=== PATIENT | male | born 1950 | race Caucasian/White ===

== ENCOUNTER → 2019-06-21 12:31 | Outpatient (CLI) | payer MEDICARE, OTHER, SELFPAY ==
--- NOTE | 2019-06-21 12:35 | DI.MRI.S_ITS ---
PROCEDURE: MR LUMBAR SPINE WO CON INDICATIONS: Lower back pain TECHNIQUE: Noncontrast sagittal T1 spin echo and T2 fast echo, sagittal STIR, axial T1 and T2 fast spin echo through the lumbar spine. In cases with scoliosis, additional coronal T2 fast spin echo may be performed. COMPARISON: None. FINDINGS: Image quality: Suboptimal secondary to sacral fixation hardware. Alignment and Curvature: Straightening of the normal lordotic curvature. Bone Marrow: Multilevel degenerative endplate sclerosis and spurring. Diffuse facet arthropathy. No acute vertebral body compression fractures. Spinal Cord: Conus medullaris terminates at the L1 level. Visualized cord demonstrates normal signal and size. Paraspinous Soft Tissues: No paravertebral masses. There is nonspecific, dependent posterior subcutaneous soft tissue edema from level of L2-L5. L1-L2: Normal appearance. L2-L3: No high-grade central canal narrowing. Lateral recesses appear patent. No left foraminal stenosis. Mild right foraminal narrowing. L3-L4: Posterior annular fissure. Left paracentral disc protrusion. Mild left-sided canal narrowing. Mild partial effacement of the left lateral recess. Mild left foraminal narrowing mild right foraminal stenosis L4-L5: Posterior annular fissure. Mild central canal narrowing. Partial effacement of both lateral recesses with bilaterally symmetric appearance. Severe left foraminal stenosis with nerve root compression. Moderate to severe right foraminal narrowing with possible nerve root compression L5-S1: No central canal narrowing. No lateral recess narrowing. No foraminal narrowing IMPRESSION: Multilevel lumbar spondylosis, with severe left L4-L5 foraminal narrowing. Moderate to severe right L4-L5 foraminal stenosis. Left paracentral disc protrusion at L3-L4 with partial effacement of the left lateral recess and minimal left-sided canal narrowing. Dictated by: Maxime Elkins M.D. on 06/22/2019 at 11:20 Approved by: Maxime Elkins M.D. on 06/22/2019 at 11:31
== END ==
PROVIDERS: Family Provider Family Medicine; PCP Family Medicine; Visit Provider Physical Medicine & Rehabilitation
DX: M54.5 Low back pain (principal); M47.27 Other spondylosis with radiculopathy, lumbosacral region; M47.26 Other spondylosis with radiculopathy, lumbar region; M48.061 Spinal stenosis, lumbar region without neurogenic claudication; M48.07 Spinal stenosis, lumbosacral region; M51.16 Intervertebral disc disorders with radiculopathy, lumbar region
CPT/HCPCS: 72148

== ENCOUNTER 2019-07-17 12:15 | Outpatient (CLI) | payer MEDICARE, OTHER, SELFPAY ==
--- NOTE | 2019-07-17 12:16 | DI.RAD.S_ITS ---
PROCEDURE: PAIN L/S FACET INJ/BLK 1ST ASHLYN COMPARISON: None. INDICATIONS: 10986, [id number]- Bilateral L4/5, L5/S1 Facet Joint Injection FINDINGS: Bilateral L3-4 and L4-5 needle tip localization for facet joint injection of steroid. This represents 4 separate interventional procedures. IMPRESSION: Successful needle tip localization for bilateral L4-5 and L5-S1 facet joint steroid injections. Dictated by: Alexis Mills M.D. on 07/17/2019 at 15:48 Approved by: Alexis Mills M.D. on 07/17/2019 at 15:49
[2019-07-17 12:30] VITALS: BP 120/67; PULSE 84; RESP 16; TEMP 36; O2SAT 96
[2019-07-17 13:45] VITALS: BP 139/87; PULSE 77; RESP 16; O2SAT 96
[2019-07-17] MEDS: MIDAZOLAM 5 MG/5 ML VIAL IV (13:46)
[2019-07-17] MEDS: fentaNYL 100 MCG/2 ML INJ 50 MCG IV (13:46)
[2019-07-17 13:50] VITALS: BP 112/74; PULSE 74; RESP 16; O2SAT 95
[2019-07-17] MEDS: LIDOCAINE 1% 20 ML 10 ML INJ (13:51)
[2019-07-17] MEDS: IOPAMIDOL 15 ML VIAL 3 ML INJ (13:51)
[2019-07-17] MEDS: BUPIVACAINE 0.5% (PF) VIAL 2 ML INJ (13:51)
[2019-07-17] MEDS: BETAMETHASONE 30 MG/5 ML MDV 12 MG INJ (13:51)
[2019-07-17 13:55] VITALS: BP 114/72; PULSE 73; RESP 16; O2SAT 95
--- NOTE | 2019-07-17 13:57 | PC.NURSE ---
ASSISTING PT OFF TABLE AND TRANSPORTING TO POST PROC AREA IN STABLE CONDITION. PASSING RN CARE OF PT OFF TO ARNEL Montesinos RN. PREPPED AND ADMINISTERED VERSED AND FENTANYL, ALL OTHER MEDS PREPPED AND ADMINISTERED BY DR. TOLENTINO.
--- NOTE | 2019-07-17 14:02 | P.PCN_ITS ---
Procedures Date/Time Date of procedure: 07/17/19 Time of procedure: 14:02 General Procedure description: PREOP DIAGNOSIS 1. FACET ARTHROPATHY 2. AXIAL LBP 3. MULTILEVEL DDD POST OP DIAGNOSIS 1. FACET ARTHROPATHY 2. AXIAL LBP 3. MULTILEVEL DDD PROCEDURES 1. FLUORSCOPICALLY GUIDED CONTRAST CONTROLLED FACET JOINT INJECTIONS BILATERAL L3/4, L4/5 PHYSICIAN: Shaheed Quijano DO INDICATIONS: Javon is referred by Dr. Mar for treatment of Axial LBP FINDINGS Multilevel Facet Arthropathy with Clinically significant axial LBP DESCRIPTION OF PROCEDURE Fluoroscopically guided, contrast-controlled bilateral L3/4, L4/5 facet joint injections. Following review of allergy and review of potential side effects and complications, including, but not necessarily limited to, infection, allergic reaction, local tissue breakdown, stroke, temporary or permanent nerve injury, paralysis, and possible , the patient indicated that the patient understood and agreed to proceed. An informed consent document was signed by the patient, witnessed by a nurse, and placed in the patient's chart. Additionally, other treatment options including medications, modalities, and physical therapy were reviewed with the patient. After review of previous anaesthesic history and IV conscious sedation the patient was deemed safe to proceed with todays procedure with IV conscious sedation as ASA class II designation. Safety time-out was performed to confirm patient ID, procedure to be performed and site of procedure. IV sedation was accomplished with a combination of 2mg of Versed and 50mcg of Fentanyl was administered by the RN after DO order, titrated to patient comfort during the course of the procedure while the patient remained responsive to all verbal commands. In the prone position, following sterile prep and drape of the lumbar region, the posterior aspect of the L3/4, L4/5 facet joints were identified fluoroscopically. The skin was anesthetized via a 25-gauge 1.5-inch needle with 1% lidocaine solution into the corresponding facet joints. At this point, a 22- gauge 3.5-inch spinal needle was atraumatically introduced and advanced under fluoroscopic guidance into the corresponding facet joints. Following negative aspiration, injections of approximately 0.2-cc of Isovue 200 confirmed interarticular placement without vascular uptake. The identical procedure was then performed at the L3/4, L4/5 facet joints on the left. Radiological data, including multiple fluoroscopic views of the lumbosacral spine, reveal a spinal needle at the L3/4, L4/5 facet joints bilaterally. Subsequent views show flow of contrast material both superiorly and inferiorly within the joint space without vascular or intrathecal uptake. At this point, a total of 0.5 cc including a mixture of 0.25 cc Marcaine and 0.25 cc betamethasone was injected without complication into each of the corresponding facet joints. The patient tolerated the procedure well without signs or symptoms of complications prior to transfer to the recovery area continued monitoring without incident. The patient was then transferred to the recovery area where they were observed for an appropriate period of time after the injection. The patient reported a VAS score of 7 prior to the procedure and a post-procedure VAS of 0. Total Fluoroscopy Time: 20.3 seconds Total Conscious Sedation Time: 24min POST OP INSTRUCTIONS The patient was provided a Pain Log to continue to record their response to the target-specific procedure prior to follow-up visit with their referring physician. Additionally, specific post-injection care instructions and a contact number to our office were provided if concerns arise regarding possible complications associated with the procedure are suspected. Shaheed Quijano DO Complications: none
[2019-07-17 14:30] VITALS: BP 135/78; PULSE 82; RESP 16; O2SAT 94
--- NOTE | 2019-07-17 14:37 | PC.NURSE ---
ID note: 1400 Received patient awake, alert, and pleasant in stable condition.
== END 2019-07-17 14:20 | disposition home or self-care (01) ==
LOC: RAD 12:16
PROVIDERS: Family Provider Family Medicine; PCP Family Medicine; Visit Provider Physical Medicine & Rehabilitation
DX: M47.816 Spondylosis without myelopathy or radiculopathy, lumbar region (principal); M54.5 Low back pain; M51.36 Other intervertebral disc degeneration, lumbar region
CPT/HCPCS: 64493; 64494; 99152; J0702; J2250; J3010

== ENCOUNTER → 2019-12-28 13:04 | Outpatient (CLI) | payer MEDICARE, OTHER, SELFPAY ==
--- NOTE | 2019-12-28 13:07 | DI.RAD.S_ITS ---
PROCEDURE: XR KNEE LT 3V INDICATIONS: knee pain TECHNIQUE: 3 views of the knee were acquired. COMPARISON: None. FINDINGS: Bones: No fractures or dislocations. No suspicious bony lesions. There is a moderate degree of joint space narrowing at the medial compartment and mild such degeneration at the lateral compartment and the patellofemoral joint Soft tissues: No joint effusion. No suspicious soft tissue calcifications. IMPRESSION: No trauma found, mild to moderate osteoarthritis overall at the knee joint. Dictated by: Alexis Mills M.D. on 12/28/2019 at 13:47 Approved by: Alexis Mills M.D. on 12/28/2019 at 13:48
== END ==
PROVIDERS: Family Provider Family Medicine; PCP Family Medicine; Referring Provider Physical Medicine & Rehabilitation; Visit Provider Physical Medicine & Rehabilitation
DX: M25.562 Pain in left knee (principal); M17.12 Unilateral primary osteoarthritis, left knee
CPT/HCPCS: 20611; 73562; 99213; J7318

== ENCOUNTER → 2021-03-30 12:10 | Outpatient (CLI) | payer MEDICARE, OTHER, SELFPAY ==
--- NOTE | 2021-03-30 12:12 | DI.RAD.S_ITS ---
PROCEDURE: XR LUMBAR SPINE MIN 4V INDICATIONS: BACK PAIN TECHNIQUE: 5 views of the lumbar spine acquired, including flexion and extension views. COMPARISON: [facility], CR, SPINE LUMB MIN 4VW, 09/28/2014, 8:19. [facility], CR, XR LUMBAR SPINE WITH OBLIQUES, 10/07/2018, 11:21. FINDINGS: Bones: 5 nonrib-bearing vertebrae are present. Multilevel disc degeneration, most notably and severe at the L5-S1 level. Moderate L3-L4, L4-L5 and L5-S1 facet joint arthropathy. There is normal bony alignment. No vertebral body compression fractures. No suspicious bony lesions. Surgical fixation screw again seen traversing the sacrum as well as fixation plate and screw involving the superior pubic rami bilaterally and pubic symphysis which is fractured. Left hip arthroplasty incompletely visualized. Soft tissues: Overlying bowel gas pattern is normal. No suspicious soft tissue calcifications. IMPRESSION: 1. Multilevel spondylosis similar to prior examination. 2. Postsurgical changes as above and as was seen on prior examination there is fracture of the fixation plate involving the superior pubic rami and pubic symphysis. Dictated by: Riaz Guzman Jessica Interpreted: Maxime Elkins MD on 03/30/2021 at 16:54 Transcribed by: ANU on 03/30/2021 at 16:57 Approved by: Maxime Elkins M.D. on 03/30/2021 at 17:13
== END ==
PROVIDERS: Family Provider Family Medicine; PCP Family Medicine; Referring Provider Physical Medicine & Rehabilitation; Visit Provider Physical Medicine & Rehabilitation
DX: M47.27 Other spondylosis with radiculopathy, lumbosacral region (principal); T84.218A Breakdown (mechanical) of internal fixation device of other bones, initial encounter; Y79.3 Surgical instruments, materials and orthopedic devices (including sutures) associated with adverse incidents
CPT/HCPCS: 72110

== ENCOUNTER → 2021-04-10 08:29 | Outpatient (CLI) | payer MEDICARE, OTHER, SELFPAY ==
[2021-04-10 12:28] LABS: COVID19 -Nasal RAPID Negative (Negative)
== END ==
PROVIDERS: Family Provider Family Medicine; PCP Family Medicine; Visit Provider Physical Medicine & Rehabilitation
DX: Z20.822 Contact with and (suspected) exposure to COVID-19 (principal)
CPT/HCPCS: 87635; C9803

== ENCOUNTER 2021-04-11 08:11 | Outpatient (CLI) | payer MEDICARE, OTHER, SELFPAY ==
[2021-04-11] VITALS (9 sets, daily range): BP systolic 124–139; BP diastolic 69–93; PULSE 79–87; RESP 10–21; TEMP 36.4; O2SAT 92–97
--- NOTE | 2021-04-11 08:15 | DI.RAD.S_ITS ---
PROCEDURE: PAIN L/S FACET INJ/BLK 1ST ASHLYN COMPARISON: [facility], , PAIN L/S FACET INJ/BLK 1ST ASHLYN, 07/17/2019, 13:47. INDICATIONS: SPONDYLOSIS FINDINGS: Fluoroscopic spot filming was performed to verify placement of spinal needles at the L4, L5, and S1 levels on both sides, as labeled on the films. Appropriate location of the needle tips was confirmed by injection of iodinated contrast. IMPRESSION: Intraprocedural examination within normal limits. Dictated by: Mandeep Castellon M.D. on 04/11/2021 at 9:19 Approved by: Mandeep Castellon M.D. on 04/11/2021 at 9:19
[2021-04-11] MEDS: MIDAZOLAM 5 MG/5 ML VIAL IV (08:57)
[2021-04-11] MEDS: fentaNYL 100 MCG/2 ML INJ 50 MCG IV (08:57)
[2021-04-11] MEDS: IOPAMIDOL 15 ML VIAL 3 ML INJ (09:01)
[2021-04-11] MEDS: LIDOCAINE 1% 20 ML 10 ML INJ (09:02)
[2021-04-11] MEDS: BUPIVACAINE 0.5% (PF) VIAL 5 ML INJ (09:02)
--- NOTE | 2021-04-11 09:21 | P.PCN_ITS ---
Date/Time/Diagnoses Date of procedure: 04/11/21 Time of procedure: 09:21 Pre-procedure diagnosis: 1. FACET ARTHROPATHY Post-procedure diagnosis: same Procedure Notes Procedure: 1. BILATERAL- L4, L5 and S1 DIAGNOSTIC MB BLOCKS with LA Anesthetic Indications: Javon is referred by Dr. Boyle for treatment of Bilateral Axial LBP. Physician: Shaheed Quijano Total Fluoroscopy time (seconds): 16 Total sedation minutes: 18 Complications: none Procedure in detail & Post-procedure care: DESCRIPTION OF PROCEDURE Fluoroscopically guided, contrast-controlled bilateral L4, L5 and S1 medial branch blocks with 0.5cc of 0.5% Marcaine. Following review of allergy and review of potential side effects and complications, including, but not necessarily limited to, infection, allergic reaction, local tissue breakdown, nerve injury, paralysis, stroke and possible , the patient indicated that the patient understood and agreed to proceed. An informed consent document was signed by the patient, witnessed by a nurse, and placed in the patient's chart. After review of previous anaesthesic history and IV conscious sedation the patient was deemed safe to proceed with today's procedure with IV conscious sedation as ASA class II designation. Safety time-out was performed to confirm patient ID, procedure to be performed and site of procedure. IV sedation was accomplished with a combination of 2mg of Versed and 50mcg of Fentanyl was administered by the RN after DO order, titrated to patient comfort during the course of the procedure while the patient remained responsive to all verbal commands In the prone position, following sterile prep and drape of the lumbar region, the right L4, L5 and S1 anatomical location of the medial branch of the dorsal ramus was identified fluoroscopically. Subsequently an anesthetic skin wheal using 1% lidocaine solution was initiated at each of the anatomical spots. Subsequently then a 22-gauge 3.5-inch spinal needle was atraumatically introduced and advanced under fluoroscopic guidance at each of the corresponding sites at the right L4, L5 and S1 MB. After negative aspiration, 0.2cc of Isovue 200 was injected, confirming placement without vascular or intrathecal uptake. Subsequently then 0.5cc of 0.5% Marcaine solution was injected at each of the corresponding sites at the right L4, L5 and S1 medial branch locations. The identical procedure was replicated on the left. The patient tolerated the procedure well without signs or symptoms of complications prior to transfer to the recovery area continued monitoring without incident. Post-procedure, the patient was monitored initiating provocative activities to measure the amount of relief from block of the facetogenic pain. The patient reported a VAS of 7 prior to the procedure and a post-procedure VAS of 1. It has been a pleasure to assist in the diagnostic and therapeutic care of your patient. POST OP INSTRUCTIONS The patient was provided with a Pain Log to complete over the next several hours and subsequent days prior to the patient's follow up with the ordering physician. If the patient has service station helper relief to the solution applied, then they may be a candidate for medial branch rhizotomy. The patient is aware, was provided, once again, with a Pain Log and will follow up with the referring physician for review and clinical correlation
== END 2021-04-11 09:41 | disposition home or self-care (01) ==
PROVIDERS: Family Provider Family Medicine; PCP Family Medicine; Referring Provider Physical Medicine & Rehabilitation; Visit Provider Physical Medicine & Rehabilitation
DX: M47.817 Spondylosis without myelopathy or radiculopathy, lumbosacral region (principal); M47.816 Spondylosis without myelopathy or radiculopathy, lumbar region; M54.5 Low back pain
CPT/HCPCS: 64493; 64494; 99152; J2250; J3010

== ENCOUNTER → 2021-10-02 08:35 | Outpatient (CLI) | payer MEDICARE, OTHER, SELFPAY ==
--- NOTE | 2021-10-02 | DI.RAD.S_ITS ---
PROCEDURE: XR KNEE LT 3V INDICATIONS: osteoarthritis left knee TECHNIQUE: 3 views of the knee were acquired. COMPARISON: [facility], CR, XR KNEE 1 OR 2 VIEWS LEFT, 06/02/2020, 10:15. [facility], CR, XR KNEE 3 VIEWS LEFT, 11/08/2020, 15:14. [facility], CR, XR KNEE LT 3V, 12/28/2019, 13:18. FINDINGS: Bones: Stable appearance of left knee medial unicondylar arthroplasty with prosthetic components in expected unchanged positions. Mild periprosthetic lucency involving the tibial prosthetic component appears unchanged from prior examination. Soft tissues: Small joint effusion. No suspicious soft tissue calcifications. IMPRESSION: Stable appearance of left knee medial unicondylar arthroplasty and no change in mild periprosthetic lucency involving the tibial component. Attention on follow-up recommended. Dictated by: Riaz QUINTEROS Interpreted: Russ Templeton MD on 10/02/2021 at 9:15 Transcribed by: LICO on 10/02/2021 at 9:17 Approved by: Russ Templeton M.D. on 10/02/2021 at 10:11
== END ==
PROVIDERS: Family Provider Family Medicine; PCP Family Medicine; Referring Provider Physical Medicine & Rehabilitation; Visit Provider Physical Medicine & Rehabilitation
DX: M17.12 Unilateral primary osteoarthritis, left knee (principal); M47.27 Other spondylosis with radiculopathy, lumbosacral region; S22.31XD Fracture of one rib, right side, subsequent encounter for fracture with routine healing; Z96.652 Presence of left artificial knee joint; Z87.81 Personal history of (healed) traumatic fracture
CPT/HCPCS: 20611; 73562; 99214; J7318

== ENCOUNTER 2022-01-09 12:02 | Outpatient (CLI) | payer MEDICARE, OTHER, SELFPAY ==
[2022-01-09] VITALS (8 sets, daily range): BP systolic 123–174; BP diastolic 75–90; PULSE 66–77; RESP 13–18; TEMP 36.7; O2SAT 96–100
--- NOTE | 2022-01-09 12:03 | DI.RAD.S_ITS ---
PROCEDURE: PAIN L/S FACET INJ/BLK 1ST ASHLYN COMPARISON: [facility], , PAIN L/S FACET INJ/BLK 1ST ASHLYN, 04/11/2021, 9:02. INDICATIONS: SPONDYLOSIS FINDINGS: Fluoroscopic spot filming was performed to verify placement of spinal needles on both sides at the L4, L5, and S1 levels, as labeled on the films. Appropriate location of the needle tips was confirmed by injection of iodinated contrast. IMPRESSION: Intraprocedural examination demonstrating appropriate positions of the needles. Dictated by: Mandeep Castellon M.D. on 01/09/2022 at 13:16 Approved by: Mandeep Castellon M.D. on 01/09/2022 at 13:16
[2022-01-09 12:51] LABS: COVID19 -Nasal RAPID Negative (Negative)
[2022-01-09] MEDS: MIDAZOLAM 2 MG/2 ML VIAL IV (13:33)
[2022-01-09] MEDS: LIDOCAINE 1% (PF) 5 ML INJ (13:37)
[2022-01-09] MEDS: IOPAMIDOL 15 ML VIAL 3 ML INJ (13:37)
[2022-01-09] MEDS: BUPIVACAINE 0.5% (PF) VIAL 5 ML INJ (13:38)
--- NOTE | 2022-01-09 13:55 | P.PCN_ITS ---
Date/Time/Diagnoses Date of procedure: 01/09/22 Time of procedure: 13:55 Pre-procedure diagnosis: 1. FACET ARTHROPATHY Post-procedure diagnosis: same Procedure Notes Procedure: 1. BILATERAL- L4, L5 and S1 DIAGNOSTIC MB BLOCKS with SA Anesthetic Indications: Javon is referred by DALLIN Barrett for treatment of Bilateral Axial LBP. Physician: Shaheed Quijano Total Fluoroscopy time (seconds): 12 Total sedation minutes: 15 Complications: none Procedure in detail & Post-procedure care: DESCRIPTION OF PROCEDURE Fluoroscopically guided, contrast-controlled bilateral L4, L5 and S1 medial branch blocks with 0.5cc of 2% Lidocaine. Following review of allergy and review of potential side effects and complications, including, but not necessarily limited to, infection, allergic reaction, local tissue breakdown, nerve injury, paralysis, stroke and possible , the patient indicated that the patient understood and agreed to proceed. An informed consent document was signed by the patient, witnessed by a nurse, and placed in the patient's chart. After review of previous anaesthesic history and IV conscious sedation the patient was deemed safe to proceed with today's procedure with IV conscious sed ation as ASA class II designation. Safety time-out was performed to confirm patient ID, procedure to be performed and site of procedure. IV sedation was accomplished with a combination of 2mg of Versed was administered by the RN after DO order, titrated to patient comfort during the course of the procedure while the patient remained responsive to all verbal commands In the prone position, following sterile prep and drape of the lumbar region, the right L4, L5 and S1 anatomical location of the medial branch of the dorsal ramus was identified fluoroscopically. Subsequently an anesthetic skin wheal using 1% lidocaine solution was initiated at each of the anatomical spots. Subsequently then a 22-gauge 3.5-inch spinal needle was atraumatically introduced and advanced under fluoroscopic guidance at each of the corresponding sites at the right L4, L5 and S1 MB. After negative aspiration, 0.2cc of Isovue 200 was injected, confirming placement without vascular or intrathecal uptake. Subsequently then 0.5cc of 2% Lidocaine solution was injected at each of the corresponding sites at the right L4, L5 and S1 medial branch locations. The identical procedure was replicated on the left. The patient tolerated the procedure well without signs or symptoms of complications prior to transfer to the recovery area continued monitoring without incident. Post-procedure, the patient was monitored initiating provocative activities to measure the amount of relief from block of the facetogenic pain. The patient reported a VAS of 7 prior to the procedure and a post-procedure VAS of 1. It has been a pleasure to assist in the diagnostic and therapeutic care of your patient. POST OP INSTRUCTIONS The patient was provided with a Pain Log to complete over the next several hours and subsequent days prior to the patient's follow up with the ordering physician. If the patient has screening unit registered nurse relief to the solution applied, then they may be a candidate for medial branch rhizotomy. The patient is aware, was provided, once again, with a Pain Log and will follow up with the referring physician for review and clinical correlation
== END 2022-01-09 14:09 | disposition home or self-care (01) ==
PROVIDERS: Family Provider Family Medicine; PCP Nurse Practitioner Family; Referring Provider Physical Medicine & Rehabilitation; Visit Provider Physical Medicine & Rehabilitation
DX: M47.817 Spondylosis without myelopathy or radiculopathy, lumbosacral region (principal); Z20.822 Contact with and (suspected) exposure to COVID-19
CPT/HCPCS: 64493; 64494; 87635; 99152; J2250

== ENCOUNTER → 2022-05-17 07:34 | Outpatient (CLI) | payer MEDICARE, OTHER, SELFPAY | PROVIDERS: Family Provider Family Medicine; PCP Nurse Practitioner Family; Referring Provider Physical Medicine & Rehabilitation; Visit Provider Physical Medicine & Rehabilitation | DX: M47.817 Spondylosis without myelopathy or radiculopathy, lumbosacral region (principal); Z53.8 Procedure and treatment not carried out for other reasons ==

== ENCOUNTER 2022-05-29 07:28 | Outpatient (CLI) | payer MEDICARE, OTHER, SELFPAY ==
[2022-05-29] VITALS (11 sets, daily range): BP systolic 110–138; BP diastolic 52–73; PULSE 62–93; RESP 13–17; TEMP 36.3; O2SAT 95–97
--- NOTE | 2022-05-29 08:21 | DI.RAD.S_ITS ---
PROCEDURE: PAIN L/S MED/LAT N RFA BILAT INDICATIONS: SPONDYLOSIS COMPARISON: [facility], , PAIN L/S FACET INJ/BLK 1ST ASHLYN, 01/09/2022, 13:38. FINDINGS: Fluoroscopic spot filming was performed to verify placement of spinal needles on both sides at the L4, L5, and S1 levels, as labeled on the films. IMPRESSION: Images during rhizotomy within normal limits. Dictated by: Mandeep Castellon M.D. on 05/29/2022 at 9:59 Approved by: Mandeep Castellon M.D. on 05/29/2022 at 10:00
[2022-05-29] MEDS: MIDAZOLAM 2 MG/2 ML VIAL IV (08:25)
[2022-05-29] MEDS: BUPIVACAINE 0.5% (PF) VIAL 5 ML INJ (08:29)
[2022-05-29] MEDS: LIDOCAINE 1% 20 ML INJ (08:30)
[2022-05-29] MEDS: MIDAZOLAM 2 MG/2 ML VIAL 1 MG IV (08:42)
--- NOTE | 2022-05-29 09:02 | P.PCN_ITS ---
Date/Time/Diagnoses Date of procedure: 05/29/22 Time of procedure: 09:02 Pre-procedure diagnosis: 1. RECALCITRANT FACET ARTHROPATHY Post-procedure diagnosis: same Procedure Notes Procedure: 1. BILATERAL L4 AND L5 MEDIAL BRANCH RADIOFREQUENCY NEUROTOMY AND S1 DORSAL RAMUS BRANCH RADIOFREQUENCY NEUROTOMY Indications: Javon is referred by DALLIN Barrett for treatment of facet arthropathy. Physician: Shaheed Quijano Total Fluoroscopy time (seconds): 22 Total sedation minutes: 30 Complications: none Procedure in detail & Post-procedure care: DESCRIPTION OF PROCEDURE Bilateral L4 and L5 medial branch radiofrequency neurotomy and bilateral S1 dorsal ramus radiofrequency neurotomy under fluoroscopy with conscious sedation. The patient is well known to this clinic having undergone previous facet injections with good but temporary relief. The patient has experienced appropriate, concordant relief with previous facet and median branch blocks but the patient's pain has been recalcitrant to further conservative measures. Therefore, based upon the patient's relief and persistent symptoms, the patient is considered an appropriate candidate for facet rhizotomy. All of the patient's questions regarding the risks versus benefits of the procedure, including, but not limited to, bleeding, infection, temporary as well as lasting nerve injury, paralysis, stroke, and , as well treatment alternatives were answered to satisfaction. After obtaining informed consent, denial of pertinent drug allergies, as well as being made aware of the potential risks of bleeding, infection, spinal cord trauma, paralysis, temporary and permanent nerve damage, seizure, stroke, and possible , the patient was brought to the fluoroscopy suite and positioned prone on the fluoroscopy table. The lumbar region was prepped with Betadine and covered with a fenestrated drape in the usual sterile fashion. Appropriate monitors applied including pulse oximeter, pulse, and blood pressure for regular monitoring throughout the procedure. After review of previous anaesthesic history and IV conscious sedation the patient was deemed safe to proceed with today's procedure with IV conscious sedation as ASA class II designation. Safety time-out was performed to confirm patient ID, procedure to be performed and site of procedure. IV sedation was accomplished with a combination of 3mg of Versed administered by the RN after DO order, titrated to patient comfort during the course of the procedure while the patient remained responsive to all verbal commands. After local infiltration using 1% lidocaine, under fluoroscopic guidance, a 10- cm RF insulated needle with a 10-mm active tip was positioned parallel to the junction of the right sacral ala and the superior articulating process where the S1 dorsal ramus resides. Needle placement was confirmed with motor stimulation of .5v on the right which produced local stimulation without radicular component. The stimulation was then increased to 2v with, once again, only local multifidus stimulation without radicular component. The needle was then removed and the identical procedure was performed along the length of the right L5 medial branch with motor stimulation at .7v on the right. The identical procedure was once again performed along the length of the right L4 medial branch with motor stimulation of .5v on the right. The medial branches were then anesthetised with 0.5% Marcaine. This was then followed by a discreet lesion performed at 80 degrees Celsius for 90 seconds each. The identical procedure was repeated on the left. The patient tolerated the procedure well without signs or symptoms of complications prior to transfer to the recovery area continued monitoring without incident. The patient was then transferred to the recovery area where they were observed for an appropriate period of time after the injection. The patient reported a VAS score of 9 prior to the procedure and a post-procedure VAS of 0. POST OP INSTRUCTIONS The patient was provided a Pain Log to continue to record the patient's response to the target-specific procedure prior to the patient's follow-up visit with the referring physician. Additionally, specific post-injection care instructions and a contact number to our office were provided if concerns arise regarding possible complications associated with the procedure are suspected.
== END 2022-05-29 09:15 | disposition home or self-care (01) ==
LOC: RAD 07:29
PROVIDERS: Family Provider Family Medicine; PCP Nurse Practitioner Family; Referring Provider Physical Medicine & Rehabilitation; Visit Provider Physical Medicine & Rehabilitation
DX: M47.817 Spondylosis without myelopathy or radiculopathy, lumbosacral region (principal); M47.816 Spondylosis without myelopathy or radiculopathy, lumbar region
CPT/HCPCS: 64635; 64636; 99152; 99153; J2250

== ENCOUNTER 2022-07-24 10:47 | Outpatient (CLI) | payer MEDICARE, OTHER, SELFPAY ==
[2022-07-24] VITALS (8 sets, daily range): BP systolic 132–172; BP diastolic 64–91; PULSE 80–87; RESP 14–20; TEMP 36.3; O2SAT 95–98
--- NOTE | 2022-07-24 10:49 | DI.RAD.S_ITS ---
PROCEDURE: PAIN PERIPHERAL NRV BLK OTHER INDICATIONS: LEFT KNEE PAIN COMPARISON: None. FINDINGS: Fluoroscopic spot filming was performed to verify placement of spinal needles at the bilateral left knee juxta-articular soft tissues level(s), as labeled on the films. Appropriate location(s) of the needle tip(s) was confirmed by injection of iodinated contrast. IMPRESSION: Access needles in the bilateral left knee juxta-articular soft tissues for peripheral nerve root block. Dictated by: Yolande Lara MD, PhD on 07/24/2022 at 13:40 Approved by: Yolande Lara MD, PhD on 07/24/2022 at 13:41
[2022-07-24] MEDS: MIDAZOLAM 2 MG/2 ML VIAL IV (12:25)
[2022-07-24] MEDS: BUPIVACAINE 0.5% (PF) VIAL 5 ML INJ (12:30)
[2022-07-24] MEDS: IOPAMIDOL 15 ML VIAL 3 ML INJ (12:31)
--- NOTE | 2022-07-24 12:47 | P.PCN_ITS ---
Date/Time/Diagnoses Date of procedure: 07/24/22 Pre-procedure diagnosis: 1. Chronic knee pain Post-procedure diagnosis: same Procedure Notes Procedure: 1. Geniculate nerve blocks including superior lateral and medial as well as inferior medial nerve blocks Indications: Javon is referred by DALLIN Barrett for treatment of chronic knee pain. Physician: Shaheed Quijano Total Fluoroscopy time (seconds): 15 Total sedation minutes: 15 Complications: none Procedure in detail & Post-procedure care: DESCRIPTION OF PROCEDURE Fluoroscopically guided, contrast-controlled superior lateral, superior medial and inferior medial geniculate blocks with 2cc of 0.5% Marcaine. Following review of allergy and review of potential side effects and complications, including, but not necessarily limited to, infection, allergic reaction, local tissue breakdown, nerve injury, paralysis, stroke and possible , the patient indicated that the patient understood and agreed to proceed. An informed consent document was signed by the patient, witnessed by a nurse, and placed in the patient's chart. After review of previous anaesthesic history and IV conscious sedation the patient was deemed safe to proceed with today?s procedure with IV conscious sedation as ASA class II designation. Safety time-out was performed to confirm patient ID, procedure to be performed and site of procedure. IV sedation was accomplished with a combination of 2mg of Versed was administered by the RN after DO order, titrated to patient comfort during the course of the procedure while the patient remained responsive to all verbal commands A time-out was taken to identify the correct patient, procedure and side prior to starting the procedure. With the patient lying in the supine position, the patient was prepped and draped in usual sterile fashion using Betadine scrub and a fenestrated drape. Local anesthetic was given by raising a skin wheal and going down to the hub of a 25 gauge 1/2 inch needle. In an AP fluoroscopic view, a 20 gauge needle with was introduced through the anesthetic skin and down to the junction of the femoral diaphysis and the medial femoral condyle, then another needle to the femoral diaphysis on the lateral femoral condyle and the 3rd medial to the tibial diaphysis and the medial tibial condyle. Place of the of all 3 needles was confirmed with lateral fluoroscopic view. After negative aspirate to make sure there was no intravascular placement, trace contrast was infiltrated to confirm neurogram as well as lack of vascular uptake. After placement, 2 mL of 0.5% Marcaine was injected slowly and each of the 3 sites without incident. The needle was withdrawn and sites cleaned and dressed. The patient tolerated the procedure well without signs or symptoms of complications. The patient tolerated the procedure well without signs or symptoms of complications prior to transfer to the recovery area continued monitoring without incident. Post-procedure, the patient was monitored initiating provocative activities to measure the amount of relief from her chronic knee pain. The patient reported a VAS of 7 prior to the procedure and a post-procedure VAS of 1. POST OP INSTRUCTIONS The patient was provided with a Pain Log to complete over the next several hours and subsequent days prior to the patient's follow up with the ordering physician. 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 The patient is aware, was provided, once again, with a Pain Log and will follow up with the referring physician for review and clinical correlation.
== END 2022-07-24 13:00 | disposition home or self-care (01) ==
PROVIDERS: Family Provider Family Medicine; PCP Nurse Practitioner Family; Referring Provider Physical Medicine & Rehabilitation; Visit Provider Physical Medicine & Rehabilitation
DX: M25.562 Pain in left knee; G89.29 Other chronic pain
CPT/HCPCS: 64420; 64450; 64454; 99152; J2250

== ENCOUNTER 2022-11-08 10:41 | Outpatient (CLI) | payer MEDICARE, OTHER, SELFPAY ==
[2022-11-08] VITALS (9 sets, daily range): BP systolic 121–165; BP diastolic 66–75; PULSE 63–70; RESP 16–20; TEMP 36.2; O2SAT 95–100
--- NOTE | 2022-11-08 10:42 | DI.RAD.S_ITS ---
PROCEDURE: GENICULAR RFA LEFT INDICATIONS: Pain in left knee TECHNIQUE: 2 fluoroscopic images. COMPARISON: [facility], XA, PAIN GENICULAR NERVE BLOCK LT, 07/24/2022, 13:29. FINDINGS: Fluoroscopic spot filming was performed to verify placement of spinal needles at the left knee joint level(s), as labeled on the films. Appropriate location(s) of the needle tip(s) was confirmed by injection of iodinated contrast. Medial hemiarthroplasty. IMPRESSION: Intraoperative guidance provided. Dictated by: Cedric Frost M.D. on 11/13/2022 at 15:52 Approved by: Cedric Frost M.D. on 11/13/2022 at 15:54
[2022-11-08] MEDS: MIDAZOLAM 2 MG/2 ML VIAL IV (11:31)
[2022-11-08] MEDS: BUPIVACAINE 0.5% (PF) 10 ML VIAL 5 ML SUBCUT (11:38)
[2022-11-08] MEDS: LIDOCAINE 1% 20 ML 5 ML INJ (11:38)
--- NOTE | 2022-11-08 12:08 | PM.PROC.IR.1 ---
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 Indications: Javon is referred by DALLIN Barrett for chronic knee pain with documented genicular neuralgia with positive response with previous blocks Physician: Shaheed Quijano Total Fluoroscopy time (seconds): 20 Total sedation minutes: 30 Complications: none Procedure in detail & Post-procedure care: DESCRIPTION OF PROCEDURE Medications injected: 1 mL of 0.25 bupivacaine at each of the 3 sites. Local anesthetics 7 mL of 1% lidocaine at each of the 3 sites. Time-out was taken to identify the correct patient, procedure and side prior to starting the procedure. Both written and verbal consents were reviewed and placed in the chart. As oral consent, we did review the risks of the above stated procedure including not limited to bleeding, infection, allergic reaction, nerve injury, stroke, paralysis and and the patient elected to proceed. Informed consent was obtained today without guarantees or assurances of complete relief applied. After review of previous anaesthesic history and IV conscious sedation the patient was deemed safe to proceed with today?s procedure with IV conscious sedation as ASA class II designation. Safety time-out was performed to confirm patient ID, procedure to be performed and site of procedure. IV sedation was accomplished with a combination of 2mg of Versed was administered by the RN after DO order, titrated to patient comfort during the course of the procedure while the patient remained responsive to all verbal commands With the patient lying in the supine position the patient was prepped and draped in usual sterile fashion using chlorhexadine swabs and a fenestrated drape. Local anesthetic was given by raising a skin wheal and going down to the hub of a 25 gauge 1/2 inch needle. An AP fluoroscopic view, a 18 gauge Venom RF needle with a 10 mm active tip was introduced through the anesthetized skin and down to the junction of the femoral diaphysis and the medial femoral epicondyle, then another to the femoral diaphysis and the lateral femoral condyle, and the 3rd needle to the tibial diaphysis and the medial tibial condyle. Placement of all 3 needles was confirmed with a lateral fluoroscopic view. After negative aspirate to make sure that there was no intravascular placement RF sensory stimulation was initiated without any motor uptake but local reproduction of pain. After a negative aspirate to make sure that there was no intravascular placement, 2mL of 0.25 lidocaine was injected slowly and each of the 3 sites. Radiofrequency was then applied to the 3 sites at 50? C for 60 sec. The needle was then withdrawn approximately 5mmand a 2nd ablation was done with the same settings. The needles were all removed intact a sterile dressing was applied to all 3 sites. The patient tolerated the procedure well without signs or symptoms of complications prior to transfer to the recovery area continued monitoring without incident. The patient was then transferred to the recovery area where they were observed for an appropriate period of time after the injection. The patient reported a VAS score of 7 prior to the procedure and a post-procedure VAS of 1. POST OP INSTRUCTIONS The patient was provided a Pain Log to continue to record the patient's response to the target-specific procedure prior to the patient's follow-up visit with the referring physician. Additionally, specific post-injection care instructions and a contact number to our office were provided if concerns arise regarding possible complications associated with the procedure are suspected.
== END 2022-11-08 12:15 | disposition home or self-care (01) ==
PROVIDERS: Family Provider Family Medicine; PCP Nurse Practitioner Family; Referring Provider Physical Medicine & Rehabilitation; Visit Provider Physical Medicine & Rehabilitation
DX: G58.8 Other specified mononeuropathies (principal); M25.562 Pain in left knee
CPT/HCPCS: 64624; 99152; 99153; J2250

== ENCOUNTER → 2023-12-25 10:44 | Outpatient (CLI) | payer MEDICARE, OTHER, SELFPAY ==
--- NOTE | 2023-12-25 10:46 | DI.RAD.S_ITS ---
PROCEDURE: XR LUMBAR SPINE MIN 4V INDICATIONS: BACK PAIN TECHNIQUE: 5 views of the lumbar spine were acquired, including bilateral oblique views. COMPARISON: [facility], CR, XR LUMBAR SPINE MIN 4V, 03/30/2021, 12:08. FINDINGS: Bones: 5 nonrib-bearing vertebrae are present. There is normal bony alignment. No vertebral body compression fractures. Multilevel degenerative changes with osteophytosis, disc height loss and facet arthropathy, severe at L5-S1. Multilevel osseous neural foraminal narrowing which is severe at L4-5 and L5-S1. No suspicious bony lesions. Soft tissues: Overlying bowel gas pattern is normal. No suspicious soft tissue calcifications. Cholecystectomy clips. Above average colonic stool burden. Oblique images: No pars defects. IMPRESSION: 1. No acute bony abnormality. 2. Multilevel degenerative changes of the lumbar spine, severe at L5-S1, similar to prior dated March 30, 2021. 3. Above average colonic stool burden which may correlate with constipation. 4. Please see same day SI joint radiograph for detailed description of hardware. Dictated by: Edy Lozano M.D. on 12/25/2023 at 12:00 Approved by: Edy Lozano M.D. on 12/25/2023 at 12:03
--- NOTE | 2023-12-25 10:46 | DI.RAD.S_ITS ---
PROCEDURE: XR SACROILIAC JOINT MIN 3V INDICATIONS: SI JOINT PAIN TECHNIQUE: 3 views of the sacroiliac joints were acquired. COMPARISON: [facility], CR, XR LUMBAR SPINE MIN 4V, 03/30/2021, 12:08. [facility], CR, XR LUMBAR SPINE MIN 4V, 12/25/2023, 10:45. FINDINGS: Bones: No bony erosions or ankylosis. No suspicious bony lesions. No fractures. Single screw transfixing the bilateral SI joints is intact with no perihardware lucency to suggest hardware loosening. As before, there are 2 fractures of the surgical plate and screw fixation transfixing the bilateral superior pubic rami and pubic symphysis. Left hip arthroplasty is partially visualized. Soft tissues: Overlying bowel gas pattern is normal. No suspicious soft tissue densities. IMPRESSION: 1. Similar appearance of the postsurgical changes including two fractures of the fixation plate involving the bilateral superior pubic rami and pubic symphysis. 2. No acute fracture. Dictated by: Edy Lozano M.D. on 12/25/2023 at 12:03 Approved by: Edy Lozano M.D. on 12/25/2023 at 12:08
== END ==
LOC: RAD 10:46
PROVIDERS: Family Provider Family Medicine; PCP Nurse Practitioner Family; Referring Provider Physical Medicine & Rehabilitation; Visit Provider Physical Medicine & Rehabilitation
DX: M47.27 Other spondylosis with radiculopathy, lumbosacral region; T84.218A Breakdown (mechanical) of internal fixation device of other bones, initial encounter; M53.3 Sacrococcygeal disorders, not elsewhere classified; G89.29 Other chronic pain; Z96.642 Presence of left artificial hip joint
CPT/HCPCS: 72110; 72202

== ENCOUNTER 2024-02-04 13:26 | Outpatient (CLI) | payer MEDICARE, OTHER, SELFPAY ==
[2024-02-04] VITALS (10 sets, daily range): BP systolic 121–152; BP diastolic 63–78; PULSE 59–70; RESP 16–20; TEMP 36.4; O2SAT 94–97
--- NOTE | 2024-02-04 14:30 | DI.RAD.S_ITS ---
PROCEDURE: PAIN L/S FACET INJ/BLK 1ST ASHLYN INDICATIONS: Bilateral L4-L5 and S1 medial branch block LA COMPARISON: [facility], , PAIN L/S FACET INJ/BLK 1ST ASHLYN, 01/09/2022, 13:38. FINDINGS: Fluoroscopic spot filming was performed to verify placement of spinal needles at the bilateral L4 through S1 level(s), as labeled on the films. Appropriate location(s) of the needle tip(s) was confirmed by injection of iodinated contrast. IMPRESSION: Fluoroscopic guidance. Dictated by: Mickey Jimenez M.D. on 02/04/2024 at 15:46 Approved by: Mickey Jimenez M.D. on 02/04/2024 at 15:46
[2024-02-04] MEDS: MIDAZOLAM 2 MG/2 ML VIAL IV (15:02)
[2024-02-04] MEDS: iopamidoL 15 ML VIAL 3 ML INJ (15:06)
[2024-02-04] MEDS: BUPIVACAINE 0.5% (PF) 10 ML VIAL 5 ML INJ (15:06)
[2024-02-04] MEDS: LIDOCAINE 1% 20 ML 5 ML INJ (15:06)
[2024-02-04] MEDS: MIDAZOLAM 2 MG/2 ML VIAL 1 MG IV (15:15)
--- NOTE | 2024-02-04 15:36 | P.PCN_ITS ---
Date/Time/Diagnoses Date of procedure: 02/04/24 Time of procedure: 15:37 Pre-procedure diagnosis: 1. FACET ARTHROPATHY Post-procedure diagnosis: same Procedure Notes Procedure: 1. BILATERAL- L4, L5 and S1 DIAGNOSTIC MB BLOCKS with LA Anesthetic Indications: Javon is referred by DALLIN Barrett for treatment of Bilateral Axial LBP. Physician: Shaheed Quijano Total Fluoroscopy time (seconds): 14 Total sedation minutes: 17 Complications: none Procedure in detail & Post-procedure care: DESCRIPTION OF PROCEDURE Fluoroscopically guided, contrast-controlled bilateral L4, L5 and S1 medial branch blocks with 0.5cc of 0.5% Marcaine. Following review of allergy and review of potential side effects and complications, including, but not necessarily limited to, infection, allergic reaction, local tissue breakdown, nerve injury, paralysis, stroke and possible , the patient indicated that the patient understood and agreed to proceed. An informed consent document was signed by the patient, witnessed by a nurse, and placed in the patient's chart. After review of previous anaesthesic history and IV conscious sedation the patient was deemed safe to proceed with today's procedure with IV conscious se dation as ASA class II designation. Safety time-out was performed to confirm patient ID, procedure to be performed and site of procedure. IV sedation was accomplished with a combination of 3mg of Versed was administered by the RN after DO order, titrated to patient comfort during the course of the procedure while the patient remained responsive to all verbal commands In the prone position, following sterile prep and drape of the lumbar region, the right L4, L5 and S1 anatomical location of the medial branch of the dorsal ramus was identified fluoroscopically. Subsequently an anesthetic skin wheal using 1% lidocaine solution was initiated at each of the anatomical spots. Subsequently then a 22-gauge 3.5-inch spinal needle was atraumatically introduced and advanced under fluoroscopic guidance at each of the corresponding sites at the right L4, L5 and S1 MB. After negative aspiration, 0.2cc of Isovue 200 was injected, confirming placement without vascular or intrathecal uptake. Subsequently then 0.5cc of 0.5% Marcaine solution was injected at each of the corresponding sites at the right L4, L5 and S1 medial branch locations. The identical procedure was replicated on the left. The patient tolerated the procedure well without signs or symptoms of complications prior to transfer to the recovery area continued monitoring without incident. Post-procedure, the patient was monitored initiating provocative activities to measure the amount of relief from block of the facetogenic pain. The patient reported a VAS of 7 prior to the procedure and a post-procedure VAS of 1. It has been a pleasure to assist in the diagnostic and therapeutic care of your patient. POST OP INSTRUCTIONS The patient was provided with a Pain Log to complete over the next several hours and subsequent days prior to the patient's follow up with the ordering physician. 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 The patient is aware, was provided, once again, with a Pain Log and will follow up with the referring physician for review and clinical correlation
== END 2024-02-04 15:48 | disposition home or self-care (01) ==
LOC: RAD 13:27
PROVIDERS: Family Provider Family Medicine; PCP Nurse Practitioner Family; Referring Provider Physical Medicine & Rehabilitation; Visit Provider Physical Medicine & Rehabilitation
DX: M47.817 Spondylosis without myelopathy or radiculopathy, lumbosacral region (principal); M47.816 Spondylosis without myelopathy or radiculopathy, lumbar region
CPT/HCPCS: 64493; 64494; 99152; J2250

== ENCOUNTER 2024-06-18 07:26 | Outpatient (CLI) | payer MEDICARE, OTHER, SELFPAY ==
[2024-06-18] VITALS (41 sets, daily range): BP systolic 62–153; BP diastolic 39–84; PULSE 59–84; RESP 11–20; TEMP 36.3; O2SAT 91–98
--- NOTE | 2024-06-18 07:26 | DI.RAD.S_ITS ---
PROCEDURE: PAIN L/S MED/LAT N RFA BILAT INDICATIONS: Bilateral L4-L5 and S1 medial branch RFA COMPARISON: [facility], , PAIN L/S MED/LAT N RFA BILAT, 05/29/2022, 8:29. FINDINGS: Fluoroscopic spot filming was performed to verify placement of spinal needles at the L4, L5 and S1 level(s), as labeled on the films. Appropriate location(s) of the needle tip(s) was confirmed by injection of iodinated contrast. IMPRESSION: Fluoro guidance was provided intraoperatively for bilateral L4, L5 and S1 medial branch RFA performed by ordering physician. Dictated by: Taurus Cleary M.D. on 06/18/2024 at 16:02 Approved by: Taurus Cleary M.D. on 06/18/2024 at 16:03
[2024-06-18] MEDS: fentaNYL 100 MCG/2 ML INJ 25 MCG IM (08:08)
[2024-06-18] MEDS: MIDAZOLAM 2 MG/2 ML VIAL 1 MG IV ×3 (08:08→08:37)
[2024-06-18] MEDS: BUPIVACAINE 0.5% (PF) 10 ML VIAL 5 ML INJ (08:15)
[2024-06-18] MEDS: LIDOCAINE 1% 20 ML 5 ML INJ (08:15)
[2024-06-18] MEDS: fentaNYL 100 MCG/2 ML INJ 25 MCG IV (08:16)
[2024-06-18] MEDS: SODIUM CHLORIDE 0.9% 500 ML 1000 ML IV ×2 (09:00→09:40)
[2024-06-18] MEDS: ATROPINE 1 MG/10 ML SYRINGE 0.5 MG IV (09:02)
[2024-06-18] MEDS: NALOXONE 0.4 MG/ML VIAL IV (09:17)
[2024-06-18] MEDS: FLUMAZENIL 0.5 MG/5 ML MDV 0.2 MG IV (09:28)
--- NOTE | 2024-06-18 12:23 | P.PCN_ITS ---
Date/Time/Diagnoses Date of procedure: 06/18/24 Time of procedure: 12:23 Pre-procedure diagnosis: 1. RECALCITRANT FACET ARTHROPATHY Post-procedure diagnosis: same Procedure Notes Procedure: 1. BILATERAL L4 AND L5 MEDIAL BRANCH RADIOFREQUENCY NEUROTOMY AND S1 DORSAL RAMUS BRANCH RADIOFREQUENCY NEUROTOMY Indications: Javon is referred by DALLIN Barrett for treatment of facet arthropathy. Physician: Shaheed Quijano Total Fluoroscopy time (seconds): 25 Total sedation minutes: 43 Complications: none Procedure in detail & Post-procedure care: DESCRIPTION OF PROCEDURE Bilateral L4 and L5 medial branch radiofrequency neurotomy and bilateral S1 dorsal ramus radiofrequency neurotomy under fluoroscopy with conscious sedation. The patient is well known to this clinic having undergone previous facet injections with good but temporary relief. The patient has experienced appropriate, concordant relief with previous facet and median branch blocks but the patient's pain has been recalcitrant to further conservative measures. Therefore, based upon the patient's relief and persistent symptoms, the patient is considered an appropriate candidate for facet rhizotomy. All of the patient's questions regarding the risks versus benefits of the procedure, including, but not limited to, bleeding, infection, temporary as well as lasting nerve injury, paralysis, stroke, and , as well treatment alternatives were answered to satisfaction. After obtaining informed consent, denial of pertinent drug allergies, as well as being made aware of the potential risks of bleeding, infection, spinal cord trauma, paralysis, temporary and permanent nerve damage, seizure, stroke, and possible , the patient was brought to the fluoroscopy suite and positioned prone on the fluoroscopy table. The lumbar region was prepped in usual sterile fashion and covered with a fenestrated drape in the usual sterile fashion. Appropriate monitors applied including pulse oximeter, pulse, and blood pressure for regular monitoring throughout the procedure. After review of previous anaesthesic history and IV conscious sedation the patient was deemed safe to proceed with today's procedure with IV conscious sedation as ASA class II designation. Safety time-out was performed to confirm patient ID, procedure to be performed and site of procedure. IV sedation was accomplished with a combination of 3mg of Versed and 50mcg of Fentanyl administered by the RN after DO order, titrated to patient comfort during the course of the procedure while the patient remained responsive to all verbal commands. After local infiltration using 1% lidocaine, under fluoroscopic guidance, a 10- cm RF insulated needle with a 10-mm active tip was positioned parallel to the junction of the right sacral ala and the superior articulating process where the S1 dorsal ramus resides. Needle placement was confirmed with motor stimulation of .5v on the right which produced local stimulation without radicular component. The stimulation was then increased to 2v with, once again, only local multifidus stimulation without radicular component. The needle was then removed and the identical procedure was performed along the length of the right L5 medial branch with motor stimulation at .7v on the right. The identical procedure was once again performed along the length of the right L4 medial branch with motor stimulation of .5v on the right. The medial branches were then anesthetised with 0.5% Marcaine. This was then followed by two discreet lesions performed at 80 degrees Celsius for 90 seconds each. The identical procedure was repeated on the left. The patient tolerated the procedure well prior to transfer to the recovery area he became hypotensive and bradycardic. He was recovered with IV fluids, 0.5mg of Atropine as well as reversal agents of the IV sedation agents. He was slowly recovered and tranfered to the post op room with continued monitoring without incident. He was held for an additional two hours per protocol for the reversal of conscious sedation. Please see the nursing notes for additional details. He was also advised to follow up with his primary physician to consider further workup including an EKG and CBC given his history of Paxton's esophogus. The patient reported a VAS score of 9 prior to the procedure and a post- procedure VAS of 0. POST OP INSTRUCTIONS The patient was provided a Pain Log to continue to record the patient's response to the target-specific procedure prior to the patient's follow-up visit with the referring physician. Additionally, specific post-injection care instructions and a contact number to our office were provided if concerns arise regarding possible complications associated with the procedure are suspected.
== END 2024-06-18 11:50 | disposition home or self-care (01) ==
LOC: RAD 07:26
PROVIDERS: Family Provider Family Medicine; PCP Nurse Practitioner Family; Referring Provider Physical Medicine & Rehabilitation; Visit Provider Physical Medicine & Rehabilitation
DX: M47.816 Spondylosis without myelopathy or radiculopathy, lumbar region (principal); M47.817 Spondylosis without myelopathy or radiculopathy, lumbosacral region
CPT/HCPCS: 64635; 64636; 99152; 99153; J0461; J2250; J2310; J3010

== ENCOUNTER → 2025-01-30 10:09 | Outpatient (CLI) | payer MEDICARE, OTHER, SELFPAY ==
--- NOTE | 2025-01-30 10:10 | DI.MRI.S_ITS ---
PROCEDURE: MR LUMBAR SPINE WO CON INDICATIONS: L3/4 TL AL TECHNIQUE: Noncontrast sagittal T1 spin echo and T2 fast echo, sagittal STIR, and T2 fast spin echo through the lumbar spine. In cases with scoliosis, additional coronal T2 fast spin echo may be performed. COMPARISON: [facility], MR, MR LUMBAR SPINE WO CON, 06/21/2019, 12:53. FINDINGS: Image quality: Excellent. Alignment and Curvature: Straightening of the normal lumbar lordosis. Bone Marrow: Mild degenerative endplate changes. Marrow is of normal overall signal. No acute vertebral body compression fractures. Sacroiliac screw fixation is noted. Spinal Cord: Conus medullaris terminates at the L1 level. Visualized cord demonstrates normal signal and size. Paraspinous Soft Tissues: No paravertebral masses. T12-L1: Disc desiccation. Facet arthropathy. No central canal or neural foraminal stenosis. L1-L2: Disc desiccation and height loss. Mild disc bulge. Facet arthropathy. No central canal or neural foraminal stenosis. L2-L3: Disc desiccation and mild disc bulge asymmetric to the right appears mildly progressed compared to prior. Narrowing the right lateral recess with abutment of the descending right L2 nerve root. Mild facet arthropathy. No significant central canal stenosis. Mild right and no left neural foraminal stenosis. L3-L4: Disc desiccation and diffuse disc bulge with superimposed left paracentral disc protrusion, decreased compared to prior. Mild narrowing of the left lateral recess. No central canal stenosis. Mild bilateral neural foraminal stenosis. L4-L5: Disc desiccation and mild height loss with diffuse disc bulge. Facet arthropathy. No central canal stenosis. Narrowing of the lateral recesses, greater on the right. Severe bilateral neural foraminal stenosis, mildly progressed on the right. L5-S1: Disc desiccation. Facet arthropathy. No central canal stenosis. No significant neural foraminal stenosis. IMPRESSION: 1. Multilevel degenerative changes of the lumbar spine with mild progression as described above. 2. No significant central canal stenosis. 3. Severe bilateral neural foraminal stenosis at L4-5. Dictated by: Guillaume Yo M.D. on 02/01/2025 at 9:32 Approved by: Guillaume Yo M.D. on 02/01/2025 at 9:37
== END ==
LOC: MRI 10:09
PROVIDERS: Family Provider Family Medicine; PCP Nurse Practitioner Family; Referring Provider Physical Medicine & Rehabilitation; Visit Provider Physical Medicine & Rehabilitation
DX: M48.062 Spinal stenosis, lumbar region with neurogenic claudication (principal); M47.816 Spondylosis without myelopathy or radiculopathy, lumbar region; M47.817 Spondylosis without myelopathy or radiculopathy, lumbosacral region
CPT/HCPCS: 72148

== ENCOUNTER 2025-03-09 09:43 | Outpatient (CLI) | payer MEDICARE, OTHER, SELFPAY ==
[2025-03-09] VITALS (8 sets, daily range): BP systolic 140–179; BP diastolic 68–87; PULSE 54–63; RESP 14–16; TEMP 36; O2SAT 96–100
[2025-03-09] MEDS: MIDAZOLAM 2 MG/2 ML VIAL IV (11:27)
[2025-03-09] MEDS: DEXAMETHASONE 10 MG/ML VIAL INJ ×2 (11:30→11:33)
[2025-03-09] MEDS: BUPIVACAINE 0.25% (PF) VIAL 2 ML INJ (11:31)
[2025-03-09] MEDS: BETAMETHASONE 30 MG/5 ML MDV 12 MG INJ (11:32)
--- NOTE | 2025-03-09 11:41 | P.PCN_ITS ---
Date/Time/Diagnoses Date of procedure: 03/09/25 Time of procedure: 11:41 Pre-procedure diagnosis: 1. HNP WITH RADICULAR FEATURES, 2. MULTILEVEL CENTRAL STENOSIS, Post-procedure diagnosis: same Procedure Notes Procedure: 1. FLUOROSCOPICALLY GUIDED CONTRAST CONTROLLED INTERLAMINAR EPIDURAL STEROID INJECTION - L3/4 Indications: Javon is referred by Dr. Barrett for treatment of Bilateral Foraminal Stenosis L>R LE symptoms. Physician: Shaheed Quijano Total Fluoroscopy time (seconds): 8 Total sedation minutes: 10 Complications: none Procedure in detail & Post-procedure care: FINDINGS Multilevel Central Spinal Stenosis with Nerve Root Compression DESCRIPTION OF PROCEDURE Fluoroscopically guided, contrast-controlled L3/4 translaminar epidural steroid injection. Following review of allergy and review of potential side effects and complications, including, but not necessarily limited to, infection, allergic reaction, local tissue breakdown, temporary as well as permanent nerve injury, paralysis, stroke and possible , the patient indicated that the patient understood and agreed to proceed. An informed consent document was signed by the patient, witnessed by a nurse, and placed in the patient's chart. Additionally, other treatment options including modalities, medications, and physical therapy were reviewed with the patient. After review of previous anaesthesic history and IV conscious sedation the patient was deemed safe to proceed with today?s procedure with IV conscious sedation as ASA class II designation. Safety time-out was performed to confirm patient ID, procedure to be performed and site of procedure. IV sedation was accomplished with a combination of 2mg of Versed was administered by the RN after DO order, titrated to patient comfort during the course of the procedure while the patient remained responsive to all verbal commands. In the prone position, following sterile prep and drape of the lumbar region, the L3/4 translaminar space was identified fluoroscopically. The skin was anesthetized via a 25-gauge, 1.5-inch needle with 1% lidocaine solution. At this point, a 22-gauge short bevel spinal needle was atraumatically introduced and advanced under fluoroscopic guidance into the region of the L3/4 translaminar space. Depth was confirmed on lateral view. Radiological data, including multiple fluoroscopic views of the lumbar spine, reveal a spinal needle at the L3/4 translaminar space. Lateral views then show placement of the needle in the epidural space. Subsequent views show contrast material flowing superiorly and inferiorly in the epidural space. No vascular or intrathecal uptake is observed. At this point, using loss of resistance technique with saline and air, the epidural space was entered. This was confirmed following negative aspiration with injection of approximately 1.5 cc of Isovue 200, showing excellent epidural flow without vascular or intrathecal uptake. At this point, 1cc of 0.25% m arcaine solution combined with 4cc or 20mg of dexamethasone and 12mg of betamethasone was injected without incident. The patient tolerated the procedure well without signs or symptoms of complicati ons prior to transfer to the recovery area continued monitoring without incident. The patient was then transferred to the recovery area where they were observed for an appropriate period of time after the injection. The patient reported a VAS score of 6 prior to the procedure and a post- procedure VAS of 0. POST OP INSTRUCTIONS The patient was provided a Pain Log to continue to record their response to the target-specific procedure prior to follow-up visit with their referring physician. Additionally, specific post-injection care instructions and a contact number to our office were provided if concerns arise regarding possible complications associated with the procedure are suspected.
== END 2025-03-09 12:00 | disposition home or self-care (01) ==
LOC: RAD 09:43
PROVIDERS: Family Provider Family Medicine; PCP Nurse Practitioner Family; Referring Provider Physical Medicine & Rehabilitation; Visit Provider Physical Medicine & Rehabilitation
DX: M51.16 Intervertebral disc disorders with radiculopathy, lumbar region (principal); M48.061 Spinal stenosis, lumbar region without neurogenic claudication
CPT/HCPCS: 62323; 99152; J0702; J1100; J2250